=== PATIENT | male | born 1950 | race Hispanic/Latino ===

== ENCOUNTER 2021-05-25 02:23 | Observation (INO) | payer OTHER ==
[~2021-05-25] VITALS: Ht 162.6 cm; Wt 87.8 kg
[2021-05-25 03:13] LABS: BASOPHILS % (AUTO) 0.6 % (0.0-5.0); EOSINOPHILS % (AUTO) 2.8 % (0.0-8.0); HEMATOCRIT 43.1 % (42-54); LYMPHOCYTES % (AUTO) 19.5 % (21.0-51.0); MEAN CORPUSCULAR HGB CONC 31.1 g/dL (32.0-36.0); MEAN CORPUSCULAR VOLUME 106.2 fL (79-99); MONOCYTES % (AUTO) 4.5 % (3.0-13.0); PLATELET COUNT (AUTO) 225 K/uL (130-400); RED BLOOD CELL COUNT(AUTO) 4.06 MIL/uL (4.50-6.20); RED CELL DISTRIBUTION WIDTH 12.2 % (11.0-15.5); WHITE BLOOD COUNT (AUTO) 14.3 K/uL (4.8-10.8)
[2021-05-25 03:19] LABS: APPEARANCE,URINE Clear (CLEAR); BILIRUBIN,URINE Negative (NEGATIVE); COLOR,URINE Yellow (YELLOW); GLUCOSE, URINE (UA) Negative (NEGATIVE); KETONES,URINE Negative (NEGATIVE); LEUKOCYTE ESTERASE ,URINE Trace (NEGATIVE); NITRATE,URINE Negative (NEGATIVE); OCCULT BLOOD,URINE Large (NEGATIVE); PH,URINE 5.5 (5.0-8.0); PROTEIN,URINE POS 1+ mg/dL (NEGATIVE)
[2021-05-25 03:22] LABS: POTASSIUM 3.3 mmol/L (3.5-5.1)
[2021-05-25 03:29] LABS: ALBUMIN 3.6 g/dL (3.5-5.0); BILIRUBIN,TOTAL 0.6 mg/dL (0.2-1.0)
[2021-05-25 03:45] LABS: BACTERIA,URINE Rare /HPF (None Seen); RBC,URINE 26-50 /HPF (0-1)
[2021-05-25 03:46] LABS: CALCIUM OXALATE CRYSTALS,UR Rare /LPF (None Seen); MUCUS,URINE Few LPF (None Seen); SQUAMOUS EPITHELIAL CELL,UR Few /HPF (0-2)
[2021-05-25] MEDS ORDERED: DiphenhydrAMINE HCL 50 MG/ML VIAL IV ONE (05:00)
[2021-05-25] MEDS ORDERED: KETOROLAC 30MG VIAL (30MG/ML) IV ONE (05:00)
[2021-05-25] MEDS ORDERED: ONDANSETRON 4MG INJ IVP ONE ×2 (05:00)
[2021-05-25] MEDS ORDERED: 0.9%NACL 1000ML 1,000 ML IV ONE (05:00)
[2021-05-25] MEDS ORDERED: METOCLOPRAMIDE 10 MG/2 ML VIAL IVP ONE (05:00)
[2021-05-25] MEDS ORDERED: ONDANSETRON 4MG INJ IVP PRN (09:30)
[2021-05-25] MEDS ORDERED: HYDROMORPHONE 0.5 MG SYG (0.5MG/0.5ML) IVP PRN (09:30)
[2021-05-25] MEDS ORDERED: KCL 20 MEQ ERTAB PO ONE (09:30)
[2021-05-25] MEDS ORDERED: KETOROLAC 15MG/ML VIAL (15MG/ML) IV PRN (09:30)
[2021-05-25] MEDS ORDERED: PANTOPRAZOLE 40 MG/VIAL IVP ONE (09:30)
[2021-05-25] MEDS: DEXTROSE 5 % AND 0.9 % NACL 1,000 ML IV SCH ×2 (10:12→20:31)
[2021-05-25] MEDS: ZOSYN 3.375GM +NS 50ML IV SCH ×2 (10:12→17:35)
[2021-05-25] MEDS: PANTOPRAZOLE 40 MG/VIAL IVP SCH (10:12)
[2021-05-25 10:27] LABS: HEMOGLOBIN A1C 5.8 % (4.0-6.0)
[2021-05-25] MEDS ORDERED: TAMSULOSIN HCL 0.4 MG CAP.ER.24H PO SCH (18:00)
[2021-05-25] MEDS ORDERED: IOHEXOL 350 MG/ML 100ML INFUS..BTL IV ONE (18:40)
[2021-05-25 22:00] VITALS: BP 138/77
[2021-05-26] VITALS: BP 128/70
[2021-05-26] MEDS: ZOSYN 3.375GM +NS 50ML IV SCH ×3 (01:38→17:01)
[2021-05-26 04:00] VITALS: BP 134/67
[2021-05-26] MEDS: DEXTROSE 5 % AND 0.9 % NACL 1,000 ML IV SCH ×2 (05:58→17:01)
[2021-05-26 07:59] LABS: BASOPHILS % (AUTO) 1.1 % (0.0-5.0); HEMATOCRIT 39.9 % (42-54); LYMPHOCYTES % (AUTO) 37.6 % (21.0-51.0); MEAN CORPUSCULAR HEMOGLOBIN 33.4 pg (27.0-33.0); MEAN CORPUSCULAR HGB CONC 31.1 g/dL (32.0-36.0); MEAN CORPUSCULAR VOLUME 107.5 fL (79-99); NEUTROPHILS % (AUTO) 50.1 % (40.0-77.0); PLATELET COUNT (AUTO) 209 K/uL (130-400); RED BLOOD CELL COUNT(AUTO) 3.71 MIL/uL (4.50-6.20); RED CELL DISTRIBUTION WIDTH 12.2 % (11.0-15.5); WHITE BLOOD COUNT (AUTO) 8.3 K/uL (4.8-10.8)
[2021-05-26 08:00] VITALS: BP 141/73
[2021-05-26 08:17] LABS: ALBUMIN 3.1 g/dL (3.5-5.0); BILIRUBIN,TOTAL 0.8 mg/dL (0.2-1.0); CREATININE 0.9 mg/dL (0.5-1.5); POTASSIUM 3.7 mmol/L (3.5-5.1); TOTAL PROTEIN, SERUM 6.4 g/dL (6.0-8.3)
[2021-05-26 08:29] LABS: MAGNESIUM 2.1 mg/dL (1.80-2.40)
[2021-05-26] MEDS ORDERED: TAMSULOSIN HCL 0.4 MG CAP.ER.24H PO SCH (09:00)
[2021-05-26] MEDS: PANTOPRAZOLE 40 MG/VIAL IVP SCH (10:00)
[2021-05-26 12:00] VITALS: BP 143/72
[2021-05-26 16:00] VITALS: BP 141/79
[2021-05-26] MEDS ORDERED: LEVO750T46 PO (18:16)
[2021-05-26 20:00] VITALS: BP 149/84
== END 2021-05-26 21:30 | disposition home or self-care (01) ==
LOC: EDH 02:23 → INTOOBSV 09:28 → EDHIP 09:28 → 3BH 21:59
PROVIDERS: ADMIT Hospitalist; ATTEND Hospitalist
DX: N13.2 Hydronephrosis with renal and ureteral calculous obstruction (principal); Z20.822 Contact with and (suspected) exposure to COVID-19; E86.1 Hypovolemia; E86.0 Dehydration; N39.0 Urinary tract infection, site not specified; D72.829 Elevated white blood cell count, unspecified; D75.89 Other specified diseases of blood and blood-forming organs; N40.0 Benign prostatic hyperplasia without lower urinary tract symptoms; K57.90 Diverticulosis of intestine, part unspecified, without perforation or abscess without bleeding; K76.0 Fatty (change of) liver, not elsewhere classified; E78.5 Hyperlipidemia, unspecified; F17.210 Nicotine dependence, cigarettes, uncomplicated; E78.00 Pure hypercholesterolemia, unspecified; Z91.19 Patient's noncompliance with other medical treatment and regimen; Z79.899 Other long term (current) drug therapy
CPT/HCPCS: 36415 ×2; 74176; 74400; 80053 ×2; 81001; 83036; 83690; 83735 ×2; 84145; 84153; 84484; 85025 ×2; 85651; 86140; 87040 ×2; 87088; 87635; 93005; 96361 ×2; 96365; 96366 ×2; 96375; 96376; 99285; C9113 ×2; G0378 ×6; J1200; J1885; J2405; J2543 ×5; J2765; J7030; J7042 ×3; Q9967